=== PATIENT | female | born 1975 | race Caucasian/White ===

== ENCOUNTER 2019-10-30 05:16 | Day surgery (SDC) | payer OTHER ==
[2019-10-29 09:56] VITALS: BMI 44.2
[2019-10-30 10:04] VITALS: TEMP 98.2
[2019-10-30 10:44] VITALS: BP 131/91; PULSE 63
--- NOTE | 2019-11-02 19:19 | PATH ---
Surgical Pathology Report Patient Name: ALANIS PENA [facility]. Rec. #: [id number] /Age/Gender: 1975 (Age: 44) / F Account: [id number] Location: [facility]-ENDOSCOPY Taken: 10/30/2019 Received: 10/30/2019 Reported: 11/02/2019 Physicians: Andrea Bolden M.D. Specimen(s) Received A: STOMACH B: ESOPHAGUS Clinical History Gastroesophageal reflux Postoperative diagnosis: Gastritis Final Diagnosis A. STOMACH, BIOPSY: GASTRIC BODY MUCOSA WITH MILD CHRONIC GASTRITIS. IMMUNOHISTOCHEMICAL STAIN FOR H. PYLORI IS NEGATIVE. B. ESOPHAGUS, BIOPSY: SQUAMOUS MUCOSA WITH CHANGES OF MILD REFLUX TYPE ESOPHAGITIS Positive and negative controls (internal if applicable) show appropriate results. Electronically Signed Chula Rivera M.D. Gross Description A. Received in formalin, labeled "stomach" are 2 thakkar, irregular portions of soft tissue measuring 0.3 and 0.4 cm. in greatest dimension. The specimens are submitted in toto in one cassette. B. Received in formalin, labeled "esophagus" are 2 thakkar, irregular portions of soft tissue measuring 0.2 and 0.3 cm. in greatest dimension. The specimens are submitted in toto in one cassette. 10/30/2019 saudi10/30/2019
== END 2019-10-30 10:58 | disposition home or self-care (01) ==
LOC: JASU-ENDO 05:16
PROVIDERS: ATTEND Internal Medicine Gastroenterology
PROC: 0DB68ZX Excision of Stomach, Via Natural or Artificial Opening Endoscopic, Diagnostic (ICD-10-PCS; 2019-10-30)
PROC: 0DB48ZX Excision of Esophagogastric Junction, Via Natural or Artificial Opening Endoscopic, Diagnostic (ICD-10-PCS; principal; 2019-10-30 10:00)
DX: Z01.818 Encounter for other preprocedural examination (principal); E66.01 Morbid (severe) obesity due to excess calories; K29.50 Unspecified chronic gastritis without bleeding; K21.0 Gastro-esophageal reflux disease with esophagitis; G47.30 Sleep apnea, unspecified
CPT/HCPCS: 88305-TC; 88342-TC